=== PATIENT | male | born 1950 | race Two or more races ===

== ENCOUNTER 2018-06-18 20:59 | Emergency (ER) | payer OTHER ==
[2018-06-18 21:08] VITALS: BP 109/67; PULSE 62; TEMP 98.2; BMI 29.9
--- NOTE | 2018-06-18 23:01 | PDOC ---
History of Present Illness - General Chief Complaint: Toothache Stated Complaint: BLEEDING FROM MOUTH Time Seen by Provider: 06/18/18 22:33 History Source: Patient, Family (daughter) Exam Limitations: Clinical Condition - History of Present Illness Initial Comments: 06/18/18 22:55 Patient with no significant past medical history present with complain of tooth pain and bleeding after having extraction of right upper back tooth this afternoon. Patient reported he has been bleeding since distraction of the tooth this afternoon would not stop. Patient reported he had distraction of upper right tooth due to weakness in the tooth indicate. Denies any other symptoms. Patient denies any anticoagulation medications Timing/Duration: other (10hrs) Past History - Past Medical History Allergies/Adverse Reactions: Allergies Allergy/AdvReac Type Severity Reaction Status Date / Time No Known Allergies Allergy Verified 06/18/18 21:07 Home Medications: Ambulatory Orders Aspirin [ASA -] 81 mg PO DAILY #30 tab.chew 08/08/15 Atorvastatin Ca [Lipitor -] 10 mg PO HS #30 tablet 08/08/15 Hypromellose 0.5% Opth Soln [Isopto Tears 0.5% -] 1 drop DAILY #1 dropsbtl predniSONE [Deltasone -] 60 mg PO ASDIR 4 Days tab 08/08/15 - Suicide/Smoking/Psychosocial Hx Smoking Status: No Smoking History: Never smoked Have you smoked in the past 12 months: No Number of Cigarettes Smoked Daily: 0 Information on smoking cessation initiated: No Hx Alcohol Use: No Drug/Substance Use Hx: No Substance Use Type: None Review of Systems - Review of Systems Able to Perform ROS?: Yes Is the patient limited Romanian proficient: No Constitutional: No: Chills, Diaphoresis, Fever, Loss of Appetite, Malaise, Night Sweats, Weakness, Weight Stable, Unintentional Wgt. Loss, Unexplained wgt Loss, Other HEENTM: Yes: Dental Problems (pain and bleeding from right upper tooth). No: Eye Pain, Blurred Vision, Tearing, Recent change in vision, Double Vision, Cataracts, Ear Pain, Ocular Prothesis, Ear Discharge, Nose Pain, Nose Congestion , Tinnitus, Nose Bleeding, Hearing Loss, Throat Pain, Throat Swelling, Mouth Pain, Difficulty Swallowing, Mouth Swelling, Other Respiratory: No: Cough, Orthopnea, Shortness of Breath, SOB with Exertion, SOB at Rest, Stridor, Wheezing, Productive cough, Hemoptysis, Other Cardiac (ROS): No: Chest Pain, Edema, Irregular Heart Rate, Lightheadedness, Palpitations, Syncope, Chest Tightness, Other ABD/GI: No: Abdominal Distended, Abd. Pain w/ defecation, Blood Streaked Bowels , Constipated, Diarrhea, Difficulty Swallowing, Nausea, Poor Appetite, Poor Fluid Intake, Rectal Bleeding, Vomiting, Indigestion, Abdominal cramping, Tarry Stools, Other Hematologic/Lymphatic: No: Blood Clots, Easy Bleeding, Easy Bruising, Bleeding Diathesis All Other Systems: Reviewed and Negative *Physical Exam - Vital Signs Last Vital Signs Temp Pulse Resp BP Pulse Ox 98.2 F 62 16 109/67 100 06/18/18 21:06 06/18/18 21:06 06/18/18 21:06 06/18/18 21:06 06/18/18 21:06 - Physical Exam Comments: GENERAL: Well developed, well nourished. Awake and alert. No acute distress. HEENT: Moderate active bleeding from right upper back second molar. NECK: Supple. Full ROM. No JVD. Carotid pulses 2+ and symmetric, without bruits. No thyromegaly. No lymphadenopathy. CARDIOVASCULAR: Regular rate and rhythm. No murmurs, rubs, or gallops. Distal pulses are 2+ and symmetric. PULMONARY: No evidence of respiratory distress. Lungs clear to auscultation bilaterally. No wheezing, rales or rhonchi. ABDOMINAL: Soft. Non-tender. Non-distended. No rebound or guarding. No organomegaly. Normoactive bowel sounds. MUSCULOSKELETAL Normal range of motion at all joints. No bony deformities or tenderness. No CVA tenderness. EXTREMITIES: No cyanosis. No clubbing. No edema. No calf tenderness. SKIN: Warm and dry. Normal capillary refill. No rashes. No jaundice. NEUROLOGICAL: Alert, awake, appropriate. Cranial nerves 2-12 intact. No deficits to light touch and temperature in face, upper extremities and lower extremities. No motor deficits in the in face, upper extremities and lower extremities. Normoreflexic in the upper and lower extremities. Normal speech. Toes are down- going bilaterally. Gait is normal without ataxia. PSYCHIATRIC: Cooperative. Good eye contact. Appropriate mood and affect. General Appearance: Yes: Nourished, Appropriately Dressed. No: Apparent Distress Medical Decision Making - Medical Decision Making 06/18/18 22:59 Patient with no sick the Past medical history present with complain of persistent bleeding from right side upper tooth status post tooth extraction this afternoon. Exam shows moderate bleeding from right upper back molars with missing molars. Surgicel applied to area with by 4 x4 gauze to help stop bleeding. Will observe patient for 20-30 minutes and reassess. Patient transferred to Main ED observation and follow-up care *DC/Admit/Observation/Transfer Diagnosis at time of Disposition: Surgical wound hemorrhage after dental procedure - Referrals Referrals: Jesenia Mack MD [Primary Care Provider] - - Patient Instructions - Post Discharge Activity
--- NOTE | 2018-06-18 23:09 | PDOC ---
*Physical Exam - Vital Signs Last Vital Signs Temp Pulse Resp BP Pulse Ox 98.2 F 62 16 109/67 100 06/18/18 21:06 06/18/18 21:06 06/18/18 21:06 06/18/18 21:06 06/18/18 21:06 Medical Decision Making - Medical Decision Making 06/18/18 23:09 I had evaluated and seen this patient. The patient had a right upper tooth extraction today. Has been having persistent bleeding, unable to stop. I had evaluated the patient and placed surgicel and placed gauze. KAMALJIT Deluna will follow case with me for management. 06/19/18 00:24 Pt has been observed and the bleeding has stopped. He would like to go home. Return precautions given including rebleeding. *DC/Admit/Observation/Transfer Diagnosis at time of Disposition: Surgical wound hemorrhage after dental procedure - Discharge Dispostion Disposition: HOME Condition at time of disposition: Good Decision to Admit order: No - Referrals Referrals: Jesenia Mack MD [Primary Care Provider] - - Patient Instructions Printed Discharge Instructions: Tooth Extraction Additional Instructions: Please follow up with your dentist. If you have worsening bleeding, please return to the ER for further evaluation. - Post Discharge Activity
== END 2018-06-19 01:27 | disposition home or self-care (01) ==
LOC: JER 20:59 → JERFT 20:59 → JER 06-19 01:27
DX: T81.89XA Other complications of procedures, not elsewhere classified, initial encounter (principal); K06.8 Other specified disorders of gingiva and edentulous alveolar ridge
CPT/HCPCS: 99281-25